=== PATIENT | male | born 1990 | race Caucasian/White ===

== ENCOUNTER → 2019-10-04 10:52 | Outpatient (CLI) | payer OTHER, SELFPAY ==
--- NOTE | ~2019-10-04 | CT_ITS ---
EXAMINATION: CTA brain DATE: 10/04/2019 11:27 INDICATION: Headache. TECHNIQUE: Computed tomographic angiography (CTA) of the head was performed without and with 100 mL O mnipaque-350 intravenous contrast. The dose-length product was 1073.26 mGy-cm. Maximum intensity pro jection 3D reconstructions were created. Volume-rendered 3D reconstructions of the intracranial arter ies were created by the technologist on a separate workstation. COMPARISON: None. FINDINGS: There is no intracranial hemorrhage, acute infarction, or abnormal intracranial mass lesion . The ventricles are normal in size. The orbits are normal. There is mucosal thickening in the parana rita sinuses. There is dependent fluid in the maxillary sinuses. The mastoid air cells are normal. Lef t vertebral artery is dominant. There is no significant stenosis of basilar artery or the posterior c erebral arteries. There is no significant stenosis of the intracranial internal carotid arteries or a nterior or middle cerebral arteries. Anterior communicating artery is normal. The posterior communica ting arteries are normal. There is no aneurysm. IMPRESSION: 1. Normal brain. No aneurysm or significant intracranial arterial stenosis. Reviewed, dictated and finalized at location A. DRIVER
== END ==
PROVIDERS: Visit Provider Internal Medicine
DX: G44.1 Vascular headache, not elsewhere classified (principal)
CPT/HCPCS: 70496; Q9967

== ENCOUNTER 2020-09-30 16:11 | Outpatient (CLI) | payer OTHER, SELFPAY ==
--- NOTE | ~2020-09-30 | XR_ITS ---
EXAMINATION: XR chest 2V 09/30/2020 16:34 INDICATION: Right-sided chest pain PROCEDURE: Two-view chest COMPARISON: No prior studies for comparison. FINDINGS: The lungs are clear. The cardiomediastinal silhouette is within normal limits. There are no pleural effusions. There is no pneumothorax suspected. IMPRESSION: 1: NO ACUTE CARDIOPULMONARY DISEASE. Reviewed, dictated and finalized at location B. L CLEANER
== END 2020-09-30 16:12 | disposition home or self-care (01) ==
LOC: ANHIMG 16:22
PROVIDERS: PCP Internal Medicine; Visit Provider Internal Medicine
DX: R07.9 Chest pain, unspecified (principal)
CPT/HCPCS: 71046

== ENCOUNTER 2022-04-27 16:23 | Emergency (ER) | payer OTHER, SELFPAY ==
[2022-04-27 16:51] VITALS: BP 127/82; PULSE 58; RESP 16; TEMP 36.8; O2SAT 100
[2022-04-27 17:43] VITALS: BP 120/86; PULSE 67; RESP 18; O2SAT 99
[2022-04-27] MEDS: LIDOCAINE HCL 2% VISC SOLN 15 ML UDC (19:46)
[2022-04-27 19:49] VITALS: BP 122/90; PULSE 62; RESP 20; O2SAT 100
--- NOTE | 2022-04-27 19:54 | ED.GENADULT ---
HPI - General Adult General Chief complaint: Unspecified Stated complaint: sore throat after scope Time Seen by Provider: 04/27/22 18:58 History of Present Illness HPI narrative: This is a 32-year-old male with past medical history of Schatzki rings, who presents emergency department complaining of sore throat. He states this morning he underwent endoscopy by his GI specialist at [place]. Several hours later, he noted a sore throat with what appeared to be bruising of his uvula. He denies difficulty swallowing or difficulty breathing. Related Data Allergies Allergy/AdvReac Type Severity Reaction Status Date / Time No Known Allergies Allergy Unverified 04/27/22 17:08 Review of Systems Review of Systems: CONSTITUTIONAL: Denies fever, chills, or sweats. ENT: sore throat, Denies rhinorrhea, congestion,or otalgia. CARDIOVASCULAR: Denies chest pain, palpitations, or edema. RESPIRATORY: Denies cough or dyspnea. GASTROINTESTINAL: Denies abdominal pain, nausea, vomiting, or diarrhea. NEUROLOGIC: Denies headache, numbness, dizziness, or weakness. Exam Narrative: GENERAL: Well-appearing, well-nourished, appears uncomfortable HEAD: Normocephalic, atraumatic. EYES: PERRLA and EOMI. ENT: Small area of ecchymosis is noted to the distal aspect of the uvula without significant swelling or erythema, no uvular deviation or mass noted clear, no rhinorrhea or epistaxis. Mucous membranes moist. Oropharynx without tonsillar hypertrophy exudate or other lesions. NECK: Supple. No adenopathy or masses. No carotid bruits or JVD CHEST: Clear to auscultation. No respiratory distress. No wheezes rales or rhonchi HEART: Regular rate and rhythm. No murmur heard. Normal peripheral pulses. ABDOMEN: Soft, nontender, nondistended, normal active bowel sounds. EXTREMITIES: Normal range of motion. No edema. SKIN: Warm, dry, no rash. NEURO: No focal deficits. Alert and oriented x3. PSYCH: Normal mood and affect. Course Course Emergency Course: 20:38 - Reassessed patient. He states he feels better. Discussed return emergency cautions including signs/symptoms of peritonsillar abscess and airway compromise. The patient voiced understanding is comfortable to plan. All questions answered to his satisfaction. Vital Signs Vital signs: Vital Signs Temperature 98.2 F 09/07/22 16:51 Pulse Rate 58 L 04/27/22 16:51 Respiratory Rate 16 04/27/22 16:51 Blood Pressure 127/82 04/27/22 16:51 Pulse Oximetry 100 04/27/22 16:51 Temperature 98.2 F 04/27/22 16:51 Pulse Rate 62 04/27/22 19:49 Respiratory Rate 20 04/27/22 19:49 Blood Pressure 122/90 04/27/22 19:49 Pulse Oximetry 100 04/27/22 19:49 Medical Decision Making MDM Narrative Medical decision making narrative: Plan: Pain control, reassess Differential Diagnosis Differential Diagnosis: Uvular ecchymosis, other Vital Signs Vital Signs: Vital Signs Temperature 98.2 F 04/27/22 16:51 Pulse Rate 58 L 04/27/22 16:51 Respiratory Rate 16 04/27/22 16:51 Blood Pressure 127/82 04/27/22 16:51 Pulse Oximetry 100 04/27/22 16:51 Temperature 98.2 F 04/27/22 16:51 Pulse Rate 62 04/27/22 19:49 Respiratory Rate 20 04/27/22 19:49 Blood Pressure 122/90 04/27/22 19:49 Pulse Oximetry 100 04/27/22 19:49 Discharge Plan Discharge Clinical Impression: Acute sore throat Patient Disposition: Home, Self-Care Condition: Improved Instructions: Antibiotic Form, Peritonsillar Abscess (DC) Additional Instructions: You are seen in the emergency department. Your exam is consistent with bruising to the uvula but not concerning for airway compromise. I recommend following up with your GI doctor and your primary care doctor. If you develop difficulty swallowing, difficulty breathing, or other emergent concerns for life, limb, or eyesight, return to the emergency department Patient Language: Kenyan Prescriptions: New lidocaine
== END 2022-04-27 21:01 | disposition home or self-care (01) ==
PROVIDERS: Emergency Provider Preventive Medicine Aerospace Medicine
DX: J02.9 Acute pharyngitis, unspecified (principal)
CPT/HCPCS: 99283

== ENCOUNTER 2023-11-18 10:53 | Emergency (ER) | payer OTHER, SELFPAY ==
[2023-11-18 11:14] VITALS: BP 138/93; PULSE 91; RESP 16; TEMP 37.1; O2SAT 99
--- NOTE | 2023-11-18 11:24 | ED.URI ---
HPI - URI/Sore Throat General Chief Complaint: Upper Respiratory Infection Stated Complaint: COVID+ Time Seen by Provider: 11/18/23 11:24 Source: patient and RN notes reviewed Mode of arrival: ambulatory Limitations: no limitations History of Present Illness HPI Narrative: 33-year-old male presented for complaint of headache, sinus pressure/congestion, cough, fever/chills. Endorses occasional shortness of breath with coughing fits. onset 2 days. He states he tested positive for COVID at home, however his employer is requesting testing from a clinic. Taking DayQuil and NyQuil for symptoms. Denies wheezing, n/v/d. MD elicited complaint: cough Related Data Home Medications Medication Instructions Recorded Confirmed EQUATE DECONGESTANT 1 dose PO DIRECTED 11/18/23 11/18/23 cetirizine 10 mg tablet 10 mg PO DAILY PRN Allergy Symptoms 11/18/23 11/18/23 Allergies Allergy/AdvReac Type Severity Reaction Status Date / Time No Known Allergies Allergy Verified 11/18/23 10:57 Review of Systems Review of Systems: CONSTITUTIONAL: Endorses malaise, chills, sweats, fever EYES: Denies visual changes, redness, or discharge ENT: Reports rhinorrhea, congestion, sinus pain, otalgia, sore throat CARDIOVASCULAR: Denies chest pain, palpitations, edema RESPIRATORY: Reports cough, post nasal drainage. Denies dyspnea GASTROINTESTINAL: Denies abdominal pain, nausea, vomiting, diarrhea SKIN: Denies rash or itching MUSCULOSKELETAL: Endorses myalgia Exam Narrative: GENERAL: mildly Ill-appearing, nontoxic no acute distress. EYES: PERRLA, conjunctivae clear ENT: Mucous membranes moist. TMs pearly benjamin with dull light reflex bilaterally; no tragal tenderness. NECK: Supple. No lymphadenopathy CHEST: Clear to auscultation, breath sounds equal. Frequent ccnp cough. No wheezing, rhonchi, rales, or stridor. No respiratory distress, speaks in full sentences. HEART: Regular rate and rhythm. No murmur heard. SKIN: Warm, dry, no rash. NEURO: Alert and oriented x3. PSYCH: Normal mood and affect Course Course Emergency Course: Patient is aware of diagnosis, understands and agrees to treatment plan. Anticipatory guidance given. Patient agrees to follow-up as directed and is aware of reasons to seek care at the emergency department. Portions of this record may have been created with voice recognition software Level of Care: Express Care Visit Vital Signs Vital signs: Vital Signs Temperature 98.7 F 11/18/23 11:14 Pulse Rate 91 11/18/23 11:14 Respiratory Rate 16 11/18/23 11:14 Blood Pressure 138/93 H 11/18/23 11:14 Pulse Oximetry 99 11/18/23 11:14 Oxygen Delivery Room Air 11/18/23 11:14 Temperature 98.7 F 11/18/23 11:14 Pulse Rate 91 11/18/23 11:14 Respiratory Rate 16 11/18/23 11:14 Blood Pressure 138/93 H 11/18/23 11:14 Pulse Oximetry 99 11/18/23 11:14 Oxygen Delivery Room Air 11/18/23 11:14 reviewed MDM - URI/Sore Throat MDM Narrative Medical decision making narrative: POS covid. Discussed test results and physical exam findings. Advised supportive measures and signs/symptoms to go to the ER. Pt is appropriate for outpt treatment and f/u. Differential Diagnosis Differential diagnosis: Likely upper respiratory infection, sinusitis, viral infection and influenza Lab Data Labs: Lab Results 11/18/23 Range/Units 11:00 POC SARS CoV-2 Ag Positive (Negative) Discharge Plan Discharge Clinical Impression: COVID-19 Patient Disposition: Home, Self-Care Condition: Stable Instructions: COVID-19 (Coronavirus Disease 2019) (ED) Additional Instructions: Your rapid COVID test was positive today. The following updated recommendations have been made by the CDC and local Health Departments, regarding COVID-19: - When people get sick with a respiratory virus, they stay home and away from others. - Return to normal activities when, for at least 24 hours, sympto
== END 2023-11-18 11:36 | disposition home or self-care (01) ==
PROVIDERS: Emergency Provider Nurse Practitioner Family
DX: U07.1 COVID-19 (principal)
CPT/HCPCS: 87426; 99213; G0463